=== PATIENT | male | born 1980 | race Two or more races ===

== ENCOUNTER 2017-09-01 20:13 | Emergency (ER) | payer SELFPAY ==
[~2017-09-01] VITALS: Ht 167.6 cm; Wt 91.1 kg
[2017-09-01] MEDS ORDERED: MAALOX/HYOSCYAMINE/LIDOCAINE 45 ML BTL PO ONE (20:30)
[2017-09-01] MEDS ORDERED: SODIUM CHLORIDE FLUSH 10ML SYR IVF ONE (20:30)
[2017-09-01] MEDS ORDERED: ONDANSETRON 2MG/ML, 2ML IVPush ONE (20:30)
[2017-09-01] MEDS ORDERED: MAALOX/HYOSCYAMINE/LIDOCAINE 45 ML BTL ONE (20:48)
[2017-09-01] MEDS ORDERED: ONDANSETRON 2MG/ML, 2ML ONE (20:48)
[2017-09-01 20:49] LABS: ASPARTATE AMINO TRANSFERASE 36 U/L (15-37); BLOOD UREA NITROGEN 14 mg/dL (7-18)
[2017-09-01 20:59] LABS: HEMATOCRIT 48.5 % (39.2-51.8); HEMOGLOBIN 16.6 g/dL (13.7-18.0); WHITE BLOOD COUNT 10.1 x10^3/uL (3.4-10)
[2017-09-01 21:39] VITALS: BP 121/68
== END 2017-09-01 22:24 | disposition home or self-care (01) ==
LOC: ED 21:22
DX: R10.13 Epigastric pain (principal); E87.6 Hypokalemia; R11.0 Nausea
CPT/HCPCS: 36415; 80053; 83690; 85025; 85610; 99284